=== PATIENT | female | born 1995 | race Caucasian/White ===

== ENCOUNTER 2023-08-17 21:12 | Emergency (ER) | payer BC ==
[~2023-08-17] VITALS: Ht 157.5 cm; Wt 63.5 kg
[2023-08-17 22:25] VITALS: TEMP 98.1; O2SAT 98
[2023-08-17 23:15] VITALS: BP 142/83; PULSE 86; RESP 17
[2023-08-17] MEDS: HYDROCODONE/ACETAMINOPHEN 5/325MG TABLET PO ONE (23:15)
[2023-08-17] MEDS: BACITRACIN ZINC OINT UDPKT TOP ONE (23:15)
[2023-08-18] MEDS: TETANUS, DIPHTHERIA, PERTUSSIS VAC/PF 0.5ML (>10YR OLD) IM ONE (00:19)
[2023-08-18] MEDS ORDERED: IBUP-2029 MT (02:23)
[2023-08-18] MEDS ORDERED: OXYM30SP26 BOTHNSTRLS (02:25)
== END 2023-08-18 03:16 | disposition home or self-care (01) ==
LOC: ER 21:23
DX: S02.2XXA Fracture of nasal bones, initial encounter for closed fracture (principal); S80.02XA Contusion of left knee, initial encounter; W18.39XA Other fall on same level, initial encounter; Y93.89 Activity, other specified; Y92.89 Other specified places as the place of occurrence of the external cause; Y99.8 Other external cause status
CPT/HCPCS: 70486; 90471; 90715; 99285